=== PATIENT | female | born 1995 | race Caucasian/White ===

== ENCOUNTER 2023-11-16 08:56 | Outpatient (CLI) | payer BC, SELFPAY ==
--- OUTSIDE RECORDS SUMMARY | 2023-11-16 08:58 | XMS_ITS | Clinical Summary ---
Author Name Unknown Organization [employer] [facility] Address [place], [place] [address] Care Team Providers Care Road Conductor Name Role Phone Cuca Ortega NEWS CLERK Primary Care Provider Unava ilable Allergies No known active allergies Medications Medication Sig Dispensed Refills Start Date End Date Status vit no.[id number] ( Vitamin) 27 mg iron- 800 mcg tab Take by mouth. 0 10/24/2021 Active calcium carbonate (OS-LARY 500) 500 mg calcium (1,250 mg) tablet Take 1 Tablet (500 mg) by mouth 3 times daily with meals. 0 10/24/2021 Active omega 5-wqj-gqu-fish oil 1,000 mg (250 mg-750 mg)/5 mL liqd Take by mouth. 0 10/24/2021 Active Active Problems Problem Noted Date Diagnosed Date (normal spontaneous vaginal delivery) 06/14 Encounter for supervision of normal first , unspecified trimester 10/24/2021 Overview: Gestational age at time of intake: 8w0d Patient preferred name: Namita Salas Hx: Anxiety (on medication); Migraines Concerns this : None OB Hx: OB History Para Term AB Living 1 0 0 0 0 0 SAB IAB Ectopic Multiple Live Births 0 0 0 0 0 # Outcome Date GA Lbr Moncho/2nd Weight Sex Delivery Anes PTL Lv 1 Current Early GTT indicated: no Hx of thyroid disorder: no. ASA indicated-High Risk for preeclampsia: no Level 2 FAS indicated (pre-preg BMI>30): no Genetic screening: Patient declines BMI: 24.39 Recommended wt gain: 25-35 # Smoker: no HSV: no Ultrasound: Dating and confirmation of cardiac activity ordered Flu vaccine: COVID-19 vaccine: Moderna COVID-19 booster: (if applicable) Pertussis Vaccine: Peds: Domestic violence screen: Assessed-no concerns Partners name (if applicable): Ranulfo Encounters Date Type Department Care Team Description 10/26/2023 Lab Requisition [facility] [phone] Maria M, October Kapil, SIMIN from Last 3 Months Immunizations Name Administration Dates Next Due COVID-19 vaccine (Moderna 100mcg/0.5mL) PF, MDV 10/24/2020,09/26/2020 Influenza, IIV4 05/30/2022 MMR 06/14/2022 Tdap 05/16/2022 Family History Medical History Relation Name Comments Colon polyps Father Skin cancer Father Alcoholism Maternal Grandfather Lung cancer Maternal Grandfather Dementia Maternal Grandmother Good Health Mother Dementia Paternal Grandfather Skin cancer Paternal Grandfather Stroke Paternal Grandfather Alcoholism Paternal Grandmother Colon polyps Paternal Grandmother Diabetes Paternal Grandmother Alcoholism Paternal Uncle Cancer-prostate Paternal Uncle Depression Sister Relation Name Status Comments Father Alive Maternal Grandfather Maternal Grandmother Alive Mother Alive Paternal Grandfather Paternal Grandmother Alive Paternal Uncle Alive Sister Alive Social History Tobacco Use Types Packs/Day Years Used Date Smoking Tobacco: Never Smokeless Tobacco: Never Tobacco Cessation:Counseling Given: Not Answered Alcohol Use Standard Drinks/Week Comments Yes 0 (1 standard drink = 0.6 oz pur e alcohol) PHQ-2 Answer Date Recorded PHQ-2 TOTAL SCORE 1 07/23/2022 Social Connections Answer Date Recorded Frequency of Communication with Friends and Fami ly Not on file 07/06/2021 Financial Resource Strain Answer Date R ecorded Difficulty of Paying Living Expenses Not on file 07/06/2021 Difficulty of Paying Living Expenses Not on file 07/06/2021 Sex and Gender Information Value Date Recorded Sex Assigned at Not on file Gender Identity Not on file Sexual Orientation Not on file Obstetrics History Para Term AB IAB SAB Ectopic Multiple Livin g Live Births 1 1 1 0 0 0 0 0 0 1 1 Date Outcome GA Total Labor Labor/2nd/3rd Weight Sex Delivery Anes PTL Tonja A1 A5 Name Cl in 06/13 Term 41w 1d 1h 26m 1h 24m/0h 02m 4.52 kg (9 lb 15.4 oz) M Vag-Spont Epidu ral Lizzette ng 8 9 JAMES LOIAZA,SAMY Sanderson, Nikolas Gray MD Complications:None Delivery Location:Hospital ( [address] L[facility]D TRIAGE) Last Filed Vital Signs Vital Sign Reading Time Taken Comments Blood Pressure 118/60 07/23/2022 9:33 AM LITERATURE PROFESSOR Pulse 72 07/23/2022 9:33 AM LITERATURE PROFESSOR Temperature 36.4 ??C (97.6 ??F) 06/14/2022 7:20 AM CS T Respiratory Rate 18 06/14/2022 7:20 AM LITERATURE PROFESSOR Oxygen Saturation 97% 06/14/2022 3:40 AM LITERATURE PROFESSOR Inhaled Oxygen Concentration - - Weight 87.1 kg (192 lb) 07/23/2022 9:33 AM LITERATURE PROFESSOR Height 177.8 cm (5' 10) 07/23/2022 9:33 AM LITERATURE PROFESSOR Body Mass Index 27.55 07/23/2022 9:33 AM LITERATURE PROFESSOR Plan of Treatment Health Maintenance Due Date Last Done Comments COVID-19 vaccine series ( season) 2023 10/24/2020, 09/26/2020 BMI (ht and wt on same day) for age 18+ 07/23/2023 07/23/2022, 11/20/2021, 10/01/2021, Additional history exists Depression screening for age 12+ 07/23/2023 07/23/2022, 03/14/2022, 11/20/2021, Additional history exists Influenza for age 9-49 03/06/2024 05/30/2022 Pap test for age 21-65 10/25/2026 , 10/26/2023, 08/15/2020 Tetanus booster 05/16/2032 05/16/2022 HIV for age 15-65 Completed 11/20/2021 Hepatitis C screening for age 18-79 Completed 11/20/2021 Tdap Completed 05/16/2022 Pneumococcal series for age 6-64 Aged Out No longer eligible based on patient's age to complete this topic Procedures Procedure Name Priority Date/Time Associated Diagnosis Comments LAB TRACKING EVENT Routine 10/26/2023 11 :30 AM CDT GRANITE INSTALLER THIN PREP PAP SCREEN IMAGED Routine 10/26/2023 11:30 AM CDT HPV THIN PREP Routine 10/26/2023 11:30 AM CDT ANTI HIV 1/2 Routine 11/20/2021 8:54 AM CDT Encounter for supervision of normal first , unspecified trimester ANTI HCV Routine 11/20/2021 8:54 AM CDT Encounter for supervision of normal first , unspecified trimester from Last 3 Months or Most Recently Relevant to Health Maintenance Results * LAB TRACKING EVENT (10/26/2023 11:30 AM CDT) Other (Other) Client Collect / Unknown 10/26/2023 11:30 AM CDT 10/26/2023 3:38 PM CDT Lesvia Franz PA-C LAB BILL ONLY [facility] [address] [place] [phone], * GRANITE INSTALLER THIN PREP PAP SCREEN IMAGED (10/26/2023 11:30 AM CDT) Case Report Gynecologic Cytology Report ? Case: [id number] ? Authorizing Provider: ??Lesvia Franz PA-C ?Collected: ? 10/26/2023 1130 ? Ordering Location: ? [facility] ?Received: ?10/27/2023 1045 ? First Screen: ?Franko Peters ? Specimen: ?GRANITE INSTALLER ThinPrep Vial Screening, Cervical ? 11/06/2023 1:24 PM CDT [facility] INTERPRETATION/ RESULT NEGATIVE FOR INTRAEPITHELIAL LESION OR MALIGNANCY (NIL) (none) 11/06/2023 1:24 PM CDT [facility] IMEN ADEQUACY Satisfactory for evaluation Endocervical component present 11/06/2023 1:24 PM CDT [facility] EN[facility] HPV REQUEST HPV and PAP 11/06/2023 1:24 PM CDT [facility] Date of LMP 11/06/2023 1:24 PM CDT [facility] Comment:IUD Last Pap Date 08/15/2020 11/06/2023 1:24 PM CDT [facility] Last Pap Result NIL 1:24 PM CDT [facility] Abnormal Pap or Union Bx in last 5 years No 11/06/2023 1:24 PM CDT [facility] Menstrual Status Regular Periods 11/06/2023 1:24 PM CDT [facility] Union Bx Done Today No 11/06/2023 1:24 PM CDT [facility] Additional Information 11/06/2023 1:24 PM CDT [facility] Comment: Interpreted at [facility] - [address] [place] [address], [place] [address] Automated Review Successful 11/06/2023 1:24 PM CDT [facility] Comment:Specimen processed s uccessfully by automated metaphysics teacher device, ThinPrep Imaging System, [employer] ANCILLARY TESTING GRANITE INSTALLER HPV Ordered, Please see separate report 11/06/2023 1:24 PM CDT [facility] Note The pap test is a screening technique, not a diagnostic procedure. It is used primarily to screen for squamous cancers and precursor lesions. Published studies have shown that it is subject to both false negative and false positive results. The pap test should not be used as the sole means to diagnose or exclude pre-malignant and malignant lesions. 11/06/2023 1:24 PM CDT [facility] Other (Cervical) 10/26/2023 11:30 AM CDT 10/27/2023 10:45 AM CDT Lesvia Franz PA-C PATHOLOGY/CYTOLOGY Performing Organization Address City/[facility] Co de Phone Number [facility] [address] [place] [address], * HPV HIGH RISK (10/26/2023 11:30 AM CDT) TYPE 16 Negative Negative 10/28/2023 5:04 PM CDT [facility] TYPE 18 Negative Negative 10/28/2023 5:04 PM CDT [facility] OTHER HIGH RISK TYPES Negative Negative 10/28/2023 5:04 PM CDT [facility] Other (Cervical) 10/26/2023 11:30 AM CDT 10/27/2023 10:45 AM CDT Narrative [facility] - 10/28/2023 5:04 PM CDT HPV types 16, 18, 31, 33, 35, 39, 45, 51, 52, 56, 58, 59, 66 and 68 DNA were undetectable or below the pre-set threshold. Methodology: Romain Dax 4800 HPV Test Lesvia L Fitzloff PA-C MICROBIOLOGY [facility] [address] [place] [address], [place] * ANTI HCV (11/20/2021 8:54 AM CDT) HEPATITIS C ANTIBODY Non-React gayathri Non-React gayathri 11/20/2021 2:53 PM CDT [facility] Comment:Antibodies to HCV no t detected; does not exclude the possibility of exposure to HCV. Blood BLOOD SPECIMEN / Unknown Venipuncture / Unknown 11/20/2021 8:54 AM CDT 11/20/2021 8:54 AM CDT Lyubov Harris MD SEND OUTS Performing Organization Address City/[facility]/ZIP Co de Phone Number [facility] [address] [place] [address], [place] * ANTI HIV 1/2 (11/20/2021 8:54 AM CDT) Pathologist [facility] HIV-1/HIV-2 ANTIBODY Non-Reacti ve Non-Reacti ve 11/20/2021 2:56 PM CDT [facility] Comment:HIV-1 p24 and HIV-1/ HIV-2 Ab not detected. Blood BLOOD SPECIMEN / Unknown Venipuncture / Unknown 11/20/2021 8:54 AM CDT 11/20/2021 8:54 AM CDT Lyubov Harris MD SEND OUTS [facility] [address] [place] [address], [place] from Last 3 Months or Most Recently Relevant to Health Maintenance Advance Directives * Full Code (Latest Code Status on File) Date Activated Date Inactivated Comments 06/12/2022 8:13 AM 06/14/2022 5:01 PM Question Answer Comments Code Status Discussion: Reviewed Preferences Care Teams Road Conductor Relationship Specialty Start Date End Date Cuca Ortega NP PCP - General Nurse Practitioner - Women's Health 06/09/22
--- NOTE | 2023-11-16 09:15 | US_ITS ---
Patient: ERIN LEE Facility:?[facility] Patient ID:?[id number] Site Patient ID:?[id number] Site :?1994 Study:?US-Breast Right Dr. Mcfadden to read-11/16/2023 9:23:51 AM Ordering Physician:Carito October Final Report: RIGHT BREAST ULTRASOUND CLINICAL HISTORY: RIGHT breast lump. COMPARISON: None. TECHNIQUE: Real-time ultrasound imaging of RIGHT breast with imaging documentation. FINDINGS: Targeted sonogram RIGHT breast 5 o`clock 3 cm from the nipple performed. No fluid collection or mass. No suspicious findings. IMPRESSION: Negative sonogram RIGHT breast 5 o`clock 3 cm from the nipple. No evidence of malignancy. RECOMMENDATIONS: Clinical follow-up. Results and recommendations were discussed with the patient at the time of the exam. BI-RADS Category 2: Benign A lay language report of this examination will be provided to the patient. Dictated by Nikolas Mcfadden MD @ 11/17/2023 11:04:13 AM jj/Dictated by: Nikolas Mcfadden MD @ 11/17/2023 11:04:00 AM Signed by:?Nikolas Mcfadden MD @11/17/2023 1:27:37 PM (Electronic Signature)
== END 2023-11-16 08:57 | disposition home or self-care (01) ==
LOC: US 08:56
PROVIDERS: PCP Family Medicine; Visit Provider Physician Assistant
DX: N63.10 Unspecified lump in the right breast, unspecified quadrant (principal)
CPT/HCPCS: 76642